=== PATIENT | male | born 1985 | race Caucasian/White ===

== ENCOUNTER 2018-06-10 17:54 | Emergency (ER) | payer OTHER ==
--- NOTE | 2018-06-10 19:04 | RADIOLOGY REPORT (SQ) ---
EXAM DESCRIPTION: CHEST SINGLE VIEW COMPLETED DATE/TIME: 06/10/2018 6:51 pm REASON FOR STUDY: cp COMPARISON: None. EXAM PARAMETERS: NUMBER OF VIEWS: One view. TECHNIQUE: Single frontal radiographic view of the chest acquired. RADIATION DOSE: NA LIMITATIONS: None. FINDINGS: LUNGS AND PLEURA: No opacities, masses or pneumothorax. No pleural effusion. MEDIASTINUM AND HILAR STRUCTURES: No masses. Contour normal. HEART AND VASCULAR STRUCTURES: Heart normal in size. Normal vasculature. BONES: No acute findings. HARDWARE: None in the chest. OTHER: No other significant finding. IMPRESSION: NO ACUTE RADIOGRAPHIC FINDING IN THE CHEST. TECHNICAL DOCUMENTATION: JOB ID: [id number] [employer]- All Rights Reserved Reading location - IP/workstation name: [email or web address]
[2018-06-10 19:12] LABS: HEMATOCRIT 46.3 % (37.9-51.0); HEMOGLOBIN 15.8 g/dL (13.5-17.0); MEAN CORPUSCULAR HEMOGLOBIN 29.7 pg (27.0-33.4); MEAN CORPUSCULAR HGB CONC 34.1 g/dL (32.0-36.0); MEAN CORPUSCULAR VOLUME 87 fl (80-97); PLATELET COUNT 228 10^3/uL (150-450); RED BLOOD COUNT 5.32 10^6/uL (4.35-5.55); RED CELL DISTRIBUTION WIDTH 13.1 % (11.5-14.0)
[2018-06-10 19:41] LABS: ANION GAP 13 (5-19); BLOOD UREA NITROGEN 15 mg/dL (7-20); CALCIUM 9.8 mg/dL (8.4-10.2); CARBON DIOXIDE 27 mmol/L (22-30); CHLORIDE 104 mmol/L (98-107); GLUCOSE 76 mg/dL (75-110); POTASSIUM 3.9 mmol/L (3.6-5.0)
[2018-06-10] MEDS ORDERED: METOCLOPRAMIDE HCL ORAL SOLN 10 MG/10 ML UDCUP PO ONE (19:49)
[2018-06-10] MEDS ORDERED: LIDOCAINE 2% VISCOUS SOLN 20 ML UDCUP PO ONE (19:49)
[2018-06-10] MEDS ORDERED: FAMOTIDINE 20 MG TABLET PO ONE (19:49)
[2018-06-10] MEDS ORDERED: MAG HYDROX/AL HYDROX/SIMETH SUSP 30 ML UDCUP PO ONE (19:49)
--- NOTE | 2018-06-10 19:53 | ER Document Report ---
ED General - General Chief Complaint: Chest Pain Stated Complaint: CHEST PAIN/FATIGUE Time Seen by Provider: 06/10/18 18:38 Notes: Patient is a 33-year-old male with a past medical history of PTSD, no additional chronic medical problems who presents with 3-4 days of left-sided chest pressure discomfort. The patient reports that the symptoms started while he was weightlifting 4 days ago and have been ongoing since that time. He describes it as a pressure-like discomfort in the left and central portion of his chest. He states that nothing seems to worsen the pain and nothing seems to improve the pain. He states it is not gone away and has been continued tenuous since that time. He states that he feels somewhat fatigued and lethargic but denies shortness of breath, nausea, vomiting or diaphoresis. He has no known history of DVT or pulmonary embolus. He has no history of coronary artery disease. He denies any fever or constitutional symptoms. No history of similar symptoms in the past. He has not seen his general doctor regarding today's concerns. TRAVEL OUTSIDE OF THE [place] IN LAST 30 DAYS: No - Related Data Allergies/Adverse Reactions: amoxicillin [Amoxicillin] Allergy (Verified 06/10/18 17:55) Past Medical History - General Information source: Patient - Social History Smoking Status: Former Smoker Chew tobacco use (# tins/day): No Frequency of alcohol use: None Drug Abuse: None Lives with: Spouse/Significant other Family History: Reviewed & Not Pertinent Patient has suicidal ideation: No Patient has homicidal ideation: No Neurological Medical History: Reports: Hx Migraine Renal/ Medical History: Denies: Hx Peritoneal Dialysis Past Surgical History: Reports: Hx Oral Surgery - wisdom, Hx Orthopedic Surgery - L knee - Immunizations Hx Diphtheria, Pertussis, Tetanus Vaccination: Yes Review of Systems - Review of Systems Notes: Constitutional: Negative for fever. Positive for fatigue HENT: Negative for sore throat. Eyes: Negative for visual changes. Cardiovascular: Positive for chest pain. Respiratory: Negative for shortness of breath. Gastrointestinal: Negative for abdominal pain, vomiting or diarrhea. Genitourinary: Negative for dysuria. Musculoskeletal: Negative for back pain. Skin: Negative for rash. Neurological: Negative for headaches, weakness or numbness. 10 point ROS negative except as marked above and in HPI. Physical Exam - Vital signs Vitals: Temp Pulse Resp BP Pulse Ox 98.7 F 64 16 130/70 H 99 06/10/18 18:05 06/10/18 18:05 06/10/18 18:05 06/10/18 18:05 06/10/18 18:05 Interpretation: Normal Notes: PHYSICAL EXAMINATION: GENERAL: Well-appearing, well-nourished and in no acute distress. HEAD: Atraumatic, normocephalic. EYES: Pupils equal round and reactive to light, extraocular movements intact, sclera anicteric, conjunctiva are normal. ENT: nares patent, oropharynx clear without exudates. Moist mucous membranes. NECK: Normal range of motion, supple without lymphadenopathy LUNGS: Breath sounds clear to auscultation bilaterally and equal. No wheezes rales or rhonchi. HEART: Regular rate and rhythm without murmurs ABDOMEN: Soft, nontender, normoactive bowel sounds. No guarding, no rebound. No masses appreciated. EXTREMITIES: Normal range of motion, no pitting or edema. No cyanosis. NEUROLOGICAL: No focal neurological deficits. Moves all extremities spontaneously and on command. PSYCH: Normal mood, normal affect. SKIN: Warm, Dry, normal turgor, no rashes or lesions noted. Course - Re-evaluation Re-evalutation: 06/10/18 20:04 Presentation of chest pain in an otherwise well appearing patient. Low clinical suspicion for ACS given clinical history, exam, EKG without ST elevations or depressions, and negative initial troponin. HEART score less than or equal to 3. PE also seems unlikely given clinical history, absence of tachycardia or dyspnea. Patient is PERC criteria negative. However, I remain quite concerned the patient continues to report fatigue and persistent chest discomfort worsened by deep inspiration. Will therefore proceed with a d-dimer to further clarify. CXR without evidence of pneumothorax or pneumonia. No widened mediastinum. Aortic dissection also seems unlikely given history, symmetric pulses, CXR, and vitals. Esophageal spasm would be an alternative consideration although the patient denies symptoms of food worsening his symptoms, epigastric pain reflux symptoms, or any symptoms when lying flat to make this diagnosis seem more probable. 06/10/18 21:10 D-dimer is negative. Patient remains well in appearance, vitals within normal limits. Exact etiology of the chest discomfort is uncertain at this point does not appear to be from any immediately life-threatening cause. At this time will discharge with return precautions and follow-up recommendations. Verbal discharge instructions given a the bedside and opportunity for questions given. Medication warnings reviewed. Patient is in agreement with this plan and has verbalized understanding of return precautions and the need for primary care follow-up in the next 24-72 hours. - Vital Signs Vital signs: Temp Pulse Resp BP Pulse Ox 98.7 F 64 17 119/74 98 06/10/18 18:05 06/10/18 18:05 06/10/18 21:01 06/10/18 21:01 06/10/18 21:01 - Laboratory Result Diagrams: 06/10/18 18:59 06/10/18 18:59 - Diagnostic Test Radiology reviewed: Image reviewed, Reports reviewed Radiology results interpreted by me: 06/10/18 20:05 Chest x-ray: No acute infiltrate or pneumothorax - EKG Interpretation by Me Additional EKG results interpreted by me: 06/10/18 21:11 Sinus rhythm. Rate 62. No ST elevations or depressions. QTC is 402. Discharge - Discharge Clinical Impression: Chest discomfort Fatigue Qualifiers: Fatigue type: unspecified Qualified Code(s): R53.83 - Other fatigue Condition: Good Disposition: HOME, SELF-CARE Additional Instructions: You were seen today for chest pain. The exact cause of your pain is unclear. However, based on your cardiac enzyme testing, chest x-ray, and EKG it does not appear that it is from an immediately life-threatening cause at this time. Please return to emergency department immediately if you have worsening of your chest pain, shortness of breath, vomiting, become unable to exert yourself due to pain or difficulty breathing, you pass out, or have any pain that radiates into your arms, jaw, or back. Please also return if you have any additional symptoms that are concerning to you.
[2018-06-10 21:30] VITALS: BP 119/74
--- NOTE | 2018-06-10 22:48 | EKG REPORT ---
SEVERITY:- NORMAL ECG - SINUS RHYTHM : Confirmed by: Jaquan Schroeder MD 10-Jun-2018 22:48:26
== END 2018-06-10 21:44 | disposition home or self-care (01) ==
LOC: ER 17:54
DX: R07.89 Other chest pain (principal); R53.83 Other fatigue; Z87.891 Personal history of nicotine dependence
CPT/HCPCS: 93005; 99285; 36415; 85027; 80048; 84484; 85379; 71045; 93010; J3490

== ENCOUNTER 2019-08-28 20:24 | Emergency (ER) | payer OTHER ==
--- NOTE | 2019-08-28 20:36 | ER Document Report ---
ED Medical Screen (RME) - General Chief Complaint: Eye Pain Stated Complaint: EYE INJURY Time Seen by Provider: 08/28/19 20:32 Mode of Arrival: Ambulatory Information source: Patient Notes: 34-year-old male presents to ED for complaint of left eye pain. He states he fell asleep last night with his contacts and woke up this morning there was eye irritation. He states he took his contacts out rinsed amount he was feeling better he put him back in to school. Pain came back it was much worse than before. Went back home took the contacts out/DIR again to okay put a brand-new contact in felt good. Went back to school 30 minutes later it was driving him crazy again. He states he took the contact out put his glasses on went back home and the pain is gotten progressively worse. States he is having trouble opening the left now due to the pain he does have a contact in in the right eye. He states if he looks at the light with his right eye it causes the left eye to hurt. He denies smoking drinking or drugs. He takes Seroquel for sleep and medication for nightmares, Topamax for migraines and lithium carbonate for PTSD. I have greeted and performed a rapid initial assessment of this patient. A comprehensive ED assessment and evaluation of the patient, analysis of test results and completion of medical decision making process will be conducted by an additional ED providers. TRAVEL OUTSIDE OF THE [place] IN LAST 30 DAYS: No - Related Data Allergies/Adverse Reactions: amoxicillin [Amoxicillin] Allergy (Verified 06/10/18 17:55) Past Medical History Neurological Medical History: Reports: Hx Migraine Renal/ Medical History: Denies: Hx Peritoneal Dialysis Past Surgical History: Reports: Hx Oral Surgery - wisdom, Hx Orthopedic Surgery - L knee - Immunizations Hx Diphtheria, Pertussis, Tetanus Vaccination: Yes
[2019-08-28] MEDS ORDERED: TETRACAINE HCL 0.5% OPH SOLN 4 ML OS ONE ×4 (20:38→23:15)
[2019-08-28] MEDS ORDERED: TETRACAINE HCL 0.5% OPH SOLN 4 ML ONE (23:16)
[2019-08-28] MEDS ORDERED: BESIFLOXACIN HCL 0.6% OPH SUSP 5 ML BOTTLE OS ONE (23:28)
--- NOTE | 2019-08-28 23:31 | ER Document Report ---
ED Eye Complaint - General Chief Complaint: Eye Pain Stated Complaint: EYE INJURY Time Seen by Provider: 08/28/19 20:32 Primary Care Provider: ALE FITZPATRICK MD [ACTIVE STAFF] - Follow up in 3-5 days Mode of Arrival: Ambulatory Notes: Patient is a 34-year-old male that comes emergency department for chief complaint of left eye pain. He developed discomfort this morning after putting in his contact lens, he took it out, washed his eye, put back in, this got worse, he replaced field contact with a new contact at that point but symptoms did not improve. He states that the irritation is causing some tears and runny nose. He states the light is bothering his eyes as well. He does have a foreign body sensation in the left eye. He denies visual loss, discolored discharge, or any other complaints at this time. TRAVEL OUTSIDE OF THE [place] IN LAST 30 DAYS: No - Related Data Allergies/Adverse Reactions: amoxicillin [Amoxicillin] Allergy (Verified 06/10/18 17:55) Past Medical History - General Information source: Patient - Social History Smoking Status: Never Smoker Chew tobacco use (# tins/day): No Frequency of alcohol use: None Drug Abuse: None Family History: Reviewed & Not Pertinent Patient has suicidal ideation: No Patient has homicidal ideation: No Neurological Medical History: Reports: Hx Migraine Renal/ Medical History: Denies: Hx Peritoneal Dialysis Past Surgical History: Reports: Hx Oral Surgery - wisdom, Hx Orthopedic Surgery - L knee - Immunizations Hx Diphtheria, Pertussis, Tetanus Vaccination: Yes Review of Systems - Review of Systems Constitutional: No symptoms reported EENT: See HPI Cardiovascular: No symptoms reported Respiratory: No symptoms reported Gastrointestinal: No symptoms reported Genitourinary: No symptoms reported Male Genitourinary: No symptoms reported Musculoskeletal: No symptoms reported Skin: No symptoms reported Hematologic/Lymphatic: No symptoms reported Neurological/Psychological: No symptoms reported Physical Exam - Vital signs Vitals: Temp Pulse Resp BP Pulse Ox 97.6 F 70 20 144/91 H 98 08/28/19 20:35 08/28/19 20:35 08/28/19 20:35 08/28/19 20:35 08/28/19 20:35 - Notes Notes: GENERAL: Alert, interacts well. No acute distress. HEAD: Normocephalic, atraumatic. EYES: Pupils equal, round, and reactive to light. Extraocular movements intact. Sclera injected on the left side only. No discharge. No superficial foreign body, negative Rizwan sign. Very tiny amount of fluorescein uptake in the mid to outer left part of the cornea with a tiny corneal abrasion. ENT: Oral mucosa moist, tongue midline. Oropharynx unremarkable. Airway patent. Nares patent, no nasal septal hematoma, TM's intact. NECK: Full range of motion. Supple. Trachea midline. LUNGS: Clear to auscultation bilaterally, no wheezes, rales, or rhonchi. No respiratory distress. HEART: Regular rate and rhythm. No murmur ABDOMEN: Soft, non-tender. Non-distended. EXTREMITIES: Moves all 4 extremities spontaneously. No edema, normal radial and dorsalis pedis pulses bilaterally. No cyanosis. BACK: no cervical, thoracic, lumbar midline tenderness. No saddle anesthesia, no rmal distal neurovascular exam. Moves all extremities in full range of motion. NEUROLOGICAL: Alert and oriented x3. Normal speech. Cranial nerves II through XII grossly intact. PSYCH: Normal affect, normal mood. SKIN: Warm, dry, normal turgor. No rashes or lesions noted. Course - Re-evaluation Re-evalutation: Physical examination shows an injected left conjunctiva, very small corneal abrasion, normal EOMs, unremarkable visual acuity (patient does not have a contact in the eye that is worse), unremarkable exam otherwise. Symptoms do completely resolved with tetracaine drops. Patient provided with Besivance because of the contact wearing status, discussed follow-up with ophthalmology and return precautions. Patient states understanding and agreement. - Vital Signs Vital signs: Temp Pulse Resp BP Pulse Ox 97.4 F 74 16 135/80 H 98 08/29/19 00:04 08/29/19 00:04 08/29/19 00:04 08/29/19 00:04 08/28/19 20:35 Discharge - Discharge Clinical Impression: Left eye pain Condition: Stable Disposition: HOME, SELF-CARE Additional Instructions: Your evaluation is consistent with a small corneal abrasion. Wears glasses only during recovery, take the antibiotic eyedrops as prescribed (1 drop 3 times a day for 7 days). Symptoms should resolve with time. Follow-up with the ophthalmology referral. Come back if you are worse including swelling of the eye, loss of vision, fever, increased pain, or any other concerning or worsening symptoms. Referrals: ALE FITZPATRICK MD [ACTIVE STAFF] - Follow up in 3-5 days
[2019-08-28] MEDS ORDERED: BESIFLOXACIN HCL 0.6% OPH SUSP 5 ML BOTTLE ONE (23:53)
[2019-08-29 00:06] VITALS: BP 135/80
== END 2019-08-29 00:04 | disposition home or self-care (01) ==
LOC: ER 20:24
DX: H57.12 Ocular pain, left eye (principal); R09.89 Other specified symptoms and signs involving the circulatory and respiratory systems
CPT/HCPCS: 99283; J3490

== ENCOUNTER 2020-09-26 10:27 | Emergency (ER) | payer OTHER ==
[2020-09-26 10:58] VITALS: BP 137/89
--- NOTE | 2020-09-26 11:25 | ER Document Report ---
HPI - HPI Patient complains to provider of: Back pain Time Seen by Provider: 09/26/20 11:12 Pain Level: 3 Context: 35-year-old male past medical history significant for PTSD and chronic back pain presents to the emergency room complaining of low back pain for the past 4 days. States it flares up about once a year normally goes away after a day or 2 of rest. States this time it is not resolved. Has been taking ibuprofen with minimal relief. Patient states pain started after bending over to lift up a 10 pound weight at the gym when he felt a sudden pulling sensation in his low back. Did not fall or injure his back. Denies any loss of control of her bowels or bladder. No saddle anesthesia. No red flags. States injured his back several years ago while in the . No urinary symptoms. Associated Symptoms: None Exacerbated by: Movement, Walking Relieved by: Denies Similar symptoms previously: Yes - History of recurrent back pain. Recently seen / treated by doctor: No - ROS Systems Reviewed and Negative: Yes All other systems reviewed and negative - CONSTITUTIONAL Constitutional: DENIES: Fever, Chills - NEURO Neurology: DENIES: Weakness - RESPIRATORY Respiratory: DENIES: Trouble Breathing - GASTROINTESTINAL Gastrointestinal: DENIES: Abdominal Pain, Nausea, Patient vomiting - URINARY Urinary: DENIES: Dysuria, Urgency, Frequency - REPRODUCTIVE Reproductive: REPORTS: : - MUSCULOSKELETAL Musculoskeletal: REPORTS: Back Pain - DERM Skin Color: Normal, Alice Skin Problems: None Past Medical History - General Information source: Patient - Social History Smoking Status: Never Smoker Chew tobacco use (# tins/day): No Frequency of alcohol use: None Drug Abuse: None Family History: Reviewed & Not Pertinent Neurological Medical History: Reports: Hx Migraine Renal/ Medical History: Denies: Hx Peritoneal Dialysis Past Surgical History: Reports: Hx Oral Surgery - wisdom, Hx Orthopedic Surgery - L knee - Immunizations Hx Diphtheria, Pertussis, Tetanus Vaccination: Yes Vertical Provider Document - CONSTITUTIONAL Agree With Documented VS: Yes Exam Limitations: No Limitations General Appearance: Mild Distress - INFECTION CONTROL TRAVEL OUTSIDE OF THE [place] IN LAST 30 DAYS: No - HEENT HEENT: Atraumatic, Normocephalic - NECK Neck: Normal Inspection, Supple - RESPIRATORY Respiratory: Breath Sounds Normal, No Respiratory Distress - CARDIOVASCULAR Cardiovascular: Regular Rate, Regular Rhythm, No Murmur - BACK Back: Abnormal Inspection - Nontender to palpation over the vertebral spine. There is mild tenderness on palpation of the left sciatic notch. No step-offs, no deformities noted some lower lumbar muscle spasms are palpated. Negative straight leg raising bilaterally.. negative: CVA Tenderness-Right, CVA Tenderness-Left - MUSCULOSKELETAL/EXTREMETIES Musculoskeletal/Extremeties: FROM, Non-Tender - NEURO Level of Consciousness: Awake, Alert, Appropriate Motor/Sensory: No Motor Deficit, No Sensory Deficit Deep Tendon Reflexes: 2+ - Bilateral patellas Notes: Ambulatory with steady gait. Neurovascularly intact. - DERM Integumentary: Warm, Dry, No Rash Course - Re-evaluation Re-evalutation: 09/26/20 11:20 Patient with no acute trauma or injury to his back history of previous back issues. He is neurovascularly intact. He is ambulatory with a steady gait. He has negative straight leg raising bilaterally. Patient drove self to the emergency room will discharge home on p.o. prednisone, p.o. Flexeril, continue with ibuprofen. Lidocaine patches and/or ThermaCare patches counseled on the importance of outpatient follow-up with a primary care physician if not improving in 2 to 3 days. Patient was given strict return to the emergency room guidelines. Return for any new or worsening symptoms. All questions were answered. Patient verbalized understanding and agrees with plan of care. - Vital Signs Vital signs: Temp Pulse Resp BP Pulse Ox 97.8 F 68 16 137/89 H 99 09/26/20 10:54 09/26/20 10:54 09/26/20 10:54 09/26/20 10:54 09/26/20 10:54 Discharge - Discharge Clinical Impression: Muscle spasm of back Lumbar strain Qualifiers: Encounter type: initial encounter Qualified Code(s): S39.012A - Strain of muscle, fascia and tendon of lower back, initial encounter Condition: Stable Disposition: HOME, SELF-CARE Instructions: Low Back Pain ([facility]), Muscle Strain ([facility]) Additional Instructions: You have been seen in the Emergency Department (ED) today for back pain. Your workup and exam have not shown any acute abnormalities and you are likely suffering from muscle strain or possible problems with your discs, but there is no treatment that will fix your symptoms at this time. Please take the Flexeril and prednisone as prescribed, continue with use of ibuprofen. That has been prescribed as directed. You should also purchase a local lidocaine cream such as "aspercreme with lidocaine" and use per bottle instructions to the affected area. Apply heat to the area as often as you are able. Continue to keep active and avoid prolonged periods of bed rest. Please follow up with your doctor as soon as possible regarding today's ED visit and your back pain. Return to the ED for worsening back pain, fever, weakness or numbness of either leg, or if you develop either (1) an inability to urinate or have bowel movements, or (2) loss of your ability to control your bathroom functions (if you start having "accidents"), or if you develop other new symptoms that concern you.concern you. Prescriptions: Prednisone [Deltasone 20 mg Tablet] See Protocol PO DAILY 9 Days #18 tablet Cyclobenzaprine HCl [Flexeril 10 mg Tablet] 10 mg PO TIDP PRN #15 tab PRN Reason: Muscle Spasms Referrals: [facility] [Primary Care Provider] - Follow up as needed
== END 2020-09-26 11:25 | disposition home or self-care (01) ==
LOC: ER 10:27
DX: S39.012A Strain of muscle, fascia and tendon of lower back, initial encounter (principal); X50.0XXA Overexertion from strenuous movement or load, initial encounter; Y92.39 Other specified sports and athletic area as the place of occurrence of the external cause; M62.830 Muscle spasm of back
CPT/HCPCS: 99283